=== PATIENT | male | born 1975 | race Caucasian/White ===

== ENCOUNTER 2017-08-06 08:07 | Outpatient (CLI) | payer BC ==
--- NOTE | 2017-08-06 09:52 | MRI ---
NONCONTRAST ENHANCED MRI IMAGES BRAIN: HISTORY: Concussion with loss of consciousness, S06.0X9A. FINDINGS: Noncontrast-enhanced MRI images of the brain are obtained. There is a tiny approximately 3 x 4.5 mm subependymal cyst or cystic lesion along the lateral aspect of the right lateral ventricle. No other intracranial masses or lesions seen. No evidence of diffusion restriction seen. I do recom mend further evaluation using contrast-enhanced MRI images of the brain to further evaluate the right periventricular cystic lesion. IMPRESSION: Tiny cyst or cystic lesion along the right lateral ventricular periventricular white matter. POS: NINA
== END 2017-08-06 08:08 | disposition home or self-care (01) ==
LOC: TBSIIMAG 08:07
PROVIDERS: ATTEND Neurological Surgery
DX: S06.0X9A Concussion with loss of consciousness of unspecified duration, initial encounter (principal); R20.9 Unspecified disturbances of skin sensation; G93.9 Disorder of brain, unspecified
CPT/HCPCS: 70551

== ENCOUNTER 2017-08-21 10:31 | Outpatient (CLI) | payer BC ==
[~2017-08-21 10:31] MED LIST: Gadobenate Dimeglumine 529 MG/1 ML (20ML VIAL) ONE
--- NOTE | 2017-08-21 14:59 | MRI ---
MRI BRAIN WITH CONTRAST: DATE: 08-21-17 History: 42-year-old male with a tiny cystic lesion along the lateral margin of the right lateral ventricle. Technique: Following IV injection of 16 ml of MultiHance gadolinium based contrast agent, post contrast T1 weigh jeanette images were obtained in the coronal, sagittal and axial planes. T2 weighted axial sequence was re peated. FINDINGS: Again demonstrated in the tiny 3 x 4.5 mm cystic lesion along the lateral margin of the body of the r ight lateral ventricle. This exhibits no contrast enhancement, and no solid nodular component. It fol lows CSF signal intensity on all pulse sequences on the 08-06-17 study. This is benign, and does not r equire additional follow up. There is no abnormal intraaxial enhancement anywhere in the brain. IMPRESSION: 1. Tiny benign right periventricular cyst. 2. Otherwise normal brain. POS: NINA
== END 2017-08-21 10:32 | disposition home or self-care (01) ==
LOC: TBSIIMAG 10:31 → SCSMRI 10:32
PROVIDERS: ATTEND Neurological Surgery
DX: S06.0X9A Concussion with loss of consciousness of unspecified duration, initial encounter (principal); R20.9 Unspecified disturbances of skin sensation; G93.0 Cerebral cysts
CPT/HCPCS: 70552; A9579

== ENCOUNTER 2018-11-22 22:14 | Emergency (ER) | payer BC ==
[2018-11-22] MEDS ORDERED: Acetaminophen 500 MG TAB ONE (22:28)
[2018-11-22] MEDS ORDERED: Metoclopramide HCl 10 MG/2 ML VIAL ONE (22:28)
[2018-11-22] MEDS ORDERED: diphenhydrAMINE 50 MG/ML VIAL ONE (22:28)
== END 2018-11-22 23:35 | disposition home or self-care (01) ==
LOC: SCSER 22:14
DX: R51 Headache (principal)
CPT/HCPCS: 96361; 96365; 96375; J1200; J2765